=== PATIENT | male | born 1995 | race Caucasian/White ===

== ENCOUNTER 2016-03-20 11:44 | Emergency (ER) | END 2016-03-20 15:43 | disposition left against medical advice (07) | LOC: UCCORT 11:44 | DX: R05 Cough (principal); Z53.29 Procedure and treatment not carried out because of patient's decision for other reasons ==

== ENCOUNTER 2016-03-20 18:16 | Emergency (ER) | END 2016-03-20 20:33 | disposition left against medical advice (07) | LOC: UCCORT 18:16 | DX: R50.9 Fever, unspecified (principal); R05 Cough; Z53.21 Procedure and treatment not carried out due to patient leaving prior to being seen by health care provider ==

== ENCOUNTER 2016-03-20 21:18 | Emergency (ER) | payer OTHER ==
[2016-03-20 21:53] VITALS: BP 117/71
--- NOTE | 2016-03-20 23:44 | UC ---
FLU HPI - HPI Summary HPI Summary: 2 day history of fever, myalgias and cough. Chest felt tight today with effort of wresting practice. No vomiting or diarrhea. Appetite decreased. - History of Current Complaint Chief Complaint: UCGeneralIllness Stated Complaint: COUGH/FEVER/SINUS Time Seen by Provider: 03/20/16 23:29 Hx Obtained From: Patient Onset/Duration: Gradual Onset, Lasting Days - 3 Severity Currently: Moderate Severity Initially: Moderate Associated Signs & Symptoms: Positive: Myalgia, Cough, Nasal Congestion Related Hx: Possible Flu/Infectious Exposure - student at [facility] [employer] where flu abounds - Allergy/Home Medications Allergies/Adverse Reactions: Allergies Allergy/AdvReac Type Severity Reaction Status Date / Time No Known Allergies Allergy Verified 03/20/16 21:53 Home Medications: Home Medications Ascorbic Acid [Vitamin C Adult Gummies 125 mg] 1 chw PO ONCE PRN 03/20/16 [ History Confirmed 03/20/16] Ibuprofen [Motrin Ib] 800 mg PO ONCE PRN 03/20/16 [History Confirmed 03/20/16] SUMAtriptan TAB* [Imitrex TAB*] 50 mg PO SEE INSTRUCTIONS 03/20/16 [History Confirmed 03/20/16] PMH/Surg Hx/FS Hx/Imm Hx Previously Healthy: Yes - Surgical History Surgical History: None - Family History Known Family History: Negative: Respiratory Disease - Social History Occupation: Student Lives: Alone - off campus housing. Alcohol Use: Rare Substance Use Type: None Smoking Status (MU): Never Smoked Tobacco Review of Systems Constitutional: Fatigue Skin: Negative Eyes: Negative ENT: Sore Throat Respiratory: Cough Cardiovascular: Negative Gastrointestinal: Negative Genitourinary: Negative Motor: Negative Neurovascular: Negative Musculoskeletal: Myalgia Neurological: Negative Psychological: Negative All Other Systems Reviewed And Are Negative: Yes Physical Exam Triage Information Reviewed: Yes Appearance: Obese Vital Signs: Initial Vital Signs Temp 100.8 F 03/20/16 21:49 Pulse 97 03/20/16 21:49 Resp 16 03/20/16 21:49 BP 117/71 03/20/16 21:49 Pulse Ox 99 03/20/16 21:49 Eyes: Positive: Conjunctiva Clear ENT: Positive: Pharyngeal erythema Neck: Positive: Supple, Nontender, No Lymphadenopathy Respiratory: Positive: Lungs clear, Normal breath sounds Cardiovascular: Positive: No Murmur, Pulses Normal Abdomen Description: Positive: Nontender, No Organomegaly, Soft Musculoskeletal Exam: Normal Neurological Exam: Normal Psychological Exam: Normal Skin Exam: Normal Flu Course/Dx - Course Course Of Treatment: symptomatic treatment - Differential Dx/Diagnosis Differential Diagnosis/HQI/PQRI: Influenza Provider Diagnoses: influenza Discharge - Discharge Plan Condition: Stable Disposition: HOME Patient Education Materials: Influenza (ED) Forms: *School Release Referrals: Non Staff,Doctor [Primary Care Provider] - Additional Instructions: Continue rest, fluids and ibuprofen as needed for fever. Ensure a high intake fluids, enough to keep your urine light yellow. You should not exercise while you are running a fever.
== END 2016-03-20 23:44 | disposition home or self-care (01) ==
LOC: UCCORT 21:18
DX: J11.1 Influenza due to unidentified influenza virus with other respiratory manifestations (principal)
CPT/HCPCS: 99211; G0463